=== PATIENT | female | born 2000 | race Two or more races ===

== ENCOUNTER 2019-08-18 09:24 | Emergency (ER) | payer SELFPAY ==
[~2019-08-18] VITALS: Ht 160 cm; Wt 90.7 kg
[2019-08-18 09:29] VITALS: BP 134/83
== END 2019-08-18 09:56 | disposition left against medical advice (07) ==
LOC: EDBD 09:24 → ER 09:24
DX: F41.9 Anxiety disorder, unspecified (principal)